=== PATIENT | female | born 1990 | race Caucasian/White ===

== ENCOUNTER 2016-09-11 09:13 | Emergency (ER) | payer OTHER ==
[~2016-09-11] VITALS: Ht 170.2 cm; Wt 85.4 kg
[2016-09-11 09:28] VITALS: BP 97/70
== END 2016-09-11 12:58 | disposition home or self-care (01) ==
LOC: EME 09:13
PROC: 0HDRXZZ Extraction of Toe Nail, External Approach (ICD-10-PCS; principal; 2016-09-11)
DX: S90.211A Contusion of right great toe with damage to nail, initial encounter (principal); W10.9XXA Fall (on) (from) unspecified stairs and steps, initial encounter; Y93.9 Activity, unspecified; Y92.008 Other place in unspecified non-institutional (private) residence as the place of occurrence of the external cause; Z33.1 Pregnant state, incidental
CPT/HCPCS: 73660; 99281; 99284

== ENCOUNTER 2016-11-14 16:12 | Outpatient (CLI) | payer OTHER ==
[2016-11-14 16:30] VITALS: BP 118/72
== END 2016-11-14 19:40 | disposition home or self-care (01) ==
LOC: LDRP-OP 16:12 → 2WEST 16:14 → LDRP-OP 12-27 15:27
DX: Z03.79 Encounter for other suspected maternal and fetal conditions ruled out (principal); W50.0XXA Accidental hit or strike by another person, initial encounter; Z3A.38 38 weeks gestation of pregnancy
CPT/HCPCS: 59025; 76805; 76818; G0378

== ENCOUNTER 2016-11-19 08:03 | Inpatient (IN) | payer OTHER ==
[2016-11-19] VITALS (17 sets, daily range): BP systolic 104–169; BP diastolic 53–93
[~2016-11-19] VITALS: Ht 167.6 cm; Wt 84.0 kg
[2016-11-19] MEDS ORDERED: PRENATAL TABLE1 EAC3 PO (08:39)
[2016-11-19 09:45] LABS: EOSINOPHIL (%) 0.5 % (0-5); EOSINOPHIL COUNT 0.1 K/uL (0-0.3); HEMATOCRIT 36.1 % (36.0-46.0); IMMATURE GRANULOCYTE (%) 0.3 % (0.0-0.7); LYMPHOCYTE COUNT 2.2 K/uL (1.0-2.8); MCH 28.3 PG (29.0-34.0); MCHC 33.8 G/DL (30.0-36.0); MCV 83.8 FL (83-99); MEAN PLAT.VOLUME 10.9 uM^3 (9.5-12.4); MONOCYTE (%) 5.2 % (3-12); MONOCYTE COUNT 0.5 K/uL (0-0.8); NEUTROPHIL (%) 71.6 % (45-76); PLATELET COUNT 219 K/uL (156-360); RBC DIS.WIDTH-CV 13.1 % (11.8-14.6); RBC DIS.WIDTH-SD 39.9 % (39-53); RED BLOOD COUNT 4.31 M/uL (3.80-5.20); WHITE BLOOD COUNT 9.8 K/uL (4.1-10.2)
[2016-11-19 15:13] LABS: AMPHETAMINE NEGATIVE (500 ng/mL); BARBITURATES NEGATIVE (200 ng/mL); BENZODIAZEPINES NEGATIVE (150 ng/mL); COCAINE NEGATIVE (150 ng/mL); INTERNAL CONTROLS VALID? YES; METHADONE NEGATIVE (200 ng/mL); METHAMPHETAMINE NEGATIVE (500 ng/mL); OPIATES (MORPHINE) NEGATIVE (100 ng/mL); OXYCODONE NEGATIVE (100 ng/mL); PHENCYCLIDINE NEGATIVE (25 ng/mL); PROPOXYPHENE NEGATIVE (300 ng/mL); THC CANNABINOIDS PRESUMPTIVE POSITIVE (50 ng/mL); TRICYCLIC ANTIDEPRESSANTS NEGATIVE (300 ng/mL)
[2016-11-19 15:14] LABS: ADD MEDTOX COMMENT Y
[2016-11-20 07:17] VITALS: BP 89/64
[2016-11-20 07:53] LABS: EOSINOPHIL (%) 0.2 % (0-5); HEMATOCRIT 29.8 % (36.0-46.0); IMMATURE GRANULOCYTE (%) 0.3 % (0.0-0.7); INSTRUMENT ABS NEUTROPHIL CT 7.7 K/uL; LYMPHOCYTE COUNT 2.2 K/uL (1.0-2.8); MCHC 32.6 G/DL (30.0-36.0); MEAN PLAT.VOLUME 10.9 uM^3 (9.5-12.4); MONOCYTE (%) 5.5 % (3-12); MONOCYTE COUNT 0.6 K/uL (0-0.8); NEUTROPHIL (%) 72.5 % (45-76); NEUTROPHIL COUNT 7.7 K/uL (1.8-6.4); PLATELET COUNT 193 K/uL (156-360); RBC DIS.WIDTH-CV 12.9 % (11.8-14.6); RED BLOOD COUNT 3.59 M/uL (3.80-5.20); WHITE BLOOD COUNT 10.6 K/uL (4.1-10.2)
[2016-11-20 15:45] VITALS: BP 124/79
[2016-11-20 23:48] VITALS: BP 120/75
[2016-11-21 07:47] VITALS: BP 118/80
[2016-11-21] MEDS ORDERED: IBUPROFEN800 MG PO (09:37)
[2016-11-21] MEDS ORDERED: DOCUSATE SODIU100 MG PO (09:38)
== END 2016-11-21 13:48 | disposition home or self-care (01) | DRG 775 ==
LOC: LDRP-OP 08:03 → 2WEST 08:04 → LDRP-OP 23:38 → 2WEST 11-21 13:48 → LDRP-OP 12-27 19:51
PROVIDERS: Advanced Practice Midwife
PROC: 10E0XZZ Delivery of Products of Conception, External Approach (ICD-10-PCS; principal; 2016-11-19)
PROC: 0UQGXZZ Repair Vagina, External Approach (ICD-10-PCS; 2016-11-19)
PROC: 10907ZC Drainage of Amniotic Fluid, Therapeutic from Products of Conception, Via Natural or Artificial Opening (ICD-10-PCS; 2016-11-19)
PROC: 3E033VJ Introduction of Other Hormone into Peripheral Vein, Percutaneous Approach (ICD-10-PCS; 2016-11-19)
DX: O99.334 Smoking (tobacco) complicating childbirth (principal); D62 Acute posthemorrhagic anemia; F17.210 Nicotine dependence, cigarettes, uncomplicated; O99.02 Anemia complicating childbirth; E66.3 Overweight; Z68.29 Body mass index [BMI] 29.0-29.9, adult; Z3A.39 39 weeks gestation of pregnancy; Z37.0 Single live birth; F12.10 Cannabis abuse, uncomplicated; O99.324 Drug use complicating childbirth; O71.4 Obstetric high vaginal laceration alone; O69.81X1 Labor and delivery complicated by cord around neck, without compression, fetus 1
CPT/HCPCS: 80306 90; 84999; 85025; 87480; 87510; 87660; J0595; J7120; Q0169

== ENCOUNTER 2017-10-13 18:23 | Emergency (ER) | payer OTHER ==
[~2017-10-13] VITALS: Ht 170.2 cm; Wt 98.1 kg
[~2017-10-13 18:23] MED LIST: DOCUSATE SODIU100 MG PO; IBUPROFEN800 MG PO; PRENATAL TABLE1 EAC3 PO
[2017-10-13] MEDS ORDERED: NAPROSYN500 MG PO (23:09)
[2017-10-13 23:27] VITALS: BP 125/85
== END 2017-10-13 23:30 | disposition home or self-care (01) ==
LOC: EME 18:23
DX: S86.812A Strain of other muscle(s) and tendon(s) at lower leg level, left leg, initial encounter (principal); S80.02XA Contusion of left knee, initial encounter; W01.0XXA Fall on same level from slipping, tripping and stumbling without subsequent striking against object, initial encounter
CPT/HCPCS: 93971; 99281; 99284